=== PATIENT | male | born 1990 | race Caucasian/White ===

== ENCOUNTER 2021-05-21 00:33 | Emergency (ER) | payer SELFPAY ==
[~2021-05-21] VITALS: Ht 175.3 cm; Wt 75.0 kg
[2021-05-21 00:45] VITALS: BP 135/88
== END 2021-05-21 00:45 | disposition left against medical advice (07) ==
LOC: ER 00:33
DX: R68.89 Other general symptoms and signs (principal); Z53.21 Procedure and treatment not carried out due to patient leaving prior to being seen by health care provider